=== PATIENT | male | born 1960 | race Caucasian/White ===

== ENCOUNTER 2019-04-28 14:12 | Emergency (ER) | payer MEDICARE, MEDICAID ==
[~2019-04-28] VITALS: Ht 193 cm; Wt 108.0 kg
[2019-04-28 15:25] LABS: BASOPHILS # (AUTO) 0.1 X10'3 (0-0.2); BASOPHILS % (AUTO) 1.1 % (0-1); EOSINOPHILS # (AUTO) 0.1 X10'3 (0-0.9); EOSINOPHILS % (AUTO) 1.2 % (0-6); HEMATOCRIT 40.1 % (42.0-52.0); HEMOGLOBIN 13.6 g/dl (14.0-17.9); LYMPHOCYTES % (AUTO) 16.8 % (21-51); MEAN CORPUSCULAR HEMOGLOBIN 32.1 PG (27.0-31.0); MEAN CORPUSCULAR VOLUME 94.3 FL (78-98); MONOCYTES # (AUTO) 1.7 X10'3 (0-0.9); MONOCYTES % (AUTO) 14.1 % (2-12); NEUTROPHILS # (AUTO) 8.1 X10'3 (1.8-7.7); NEUTROPHILS % (AUTO) 66.8 % (42-75); PLATELET COUNT 415 X10'3 (140-440); RED BLOOD COUNT 4.25 X10'6 (4.70-6.10); RED CELL DISTRIBUTION WIDTH 13.8 % (11.5-14.5); WHITE BLOOD COUNT 12.1 X10'3 (4.5-11.0)
[2019-04-28 15:37] LABS: ALANINE AMINOTRANSFERASE 65 U/L (12-78); ALBUMIN/GLOBULIN RATIO 0.6 (1.1-1.5); ALKALINE PHOSPHATASE 241 IU/L (46-116); ANION GAP 12 (8-16); ASPARTATE AMINO TRANSFERASE 65 U/L (10-37); BILIRUBIN,TOTAL 1.3 MG/DL (0.1-1.0); BLOOD UREA NITROGEN 20 MG/DL (7-18); BUN/CREATININE RATIO 15.5 (5.4-32.0); CALCIUM 9.5 MG/DL (8.5-10.1); CHLORIDE 103 MMOL/L (99-107); CREATININE 1.29 MG/DL (0.60-1.10); GLUCOSE 118 MG/DL (70-104); POTASSIUM 3.1 MMOL/L (3.5-5.1); SODIUM 140 MMOL/L (135-145); TOTAL CARBON DIOXIDE 24.8 MMOL/L (24-32); TOTAL PROTEIN 8.4 G/DL (6.4-8.2); eGFR 57 ML/MIN
--- NOTE | 2019-04-28 15:42 | NUR ---
relieving RN for break, pt is wanting to leave "No one has been to see me...I want some water...I need to go home to take care of my dog", Lorenzo GARCIA had been in to talk with pt approx 20 minutes earlier and pt was aware of NPO status at that time until labs and vascular study were done and results read. I explained the risks of leaving AMA and he would be leaving against medical advice, pt also aware [employer] technical lead senior developer was paged and on his way. Lorenzo GARCIA at bedside again to talk with pt, gave pt water, and auto transmission technician is at bedside
[2019-04-28] MEDS ORDERED: CefTRIAXone 1000mg IM Kit (w/lidocaine diluent) IM ONE (15:45)
[2019-04-28 16:04] VITALS: BP 148/78
[2019-04-28] MEDS ORDERED: SULF1TAB49 PO (16:04)
[2019-04-28] MEDS ORDERED: CEPH-572 PO (16:04)
[2019-04-28] MEDS ORDERED: POTA10TA10 PO (16:04)
[2019-04-28] MEDS ORDERED: ACET-3067 PO (16:27)
== END 2019-04-28 16:32 | disposition home or self-care (01) ==
LOC: ER 14:12
DX: L03.115 Cellulitis of right lower limb (principal); R60.0 Localized edema; R00.0 Tachycardia, unspecified; R74.8 Abnormal levels of other serum enzymes; M25.571 Pain in right ankle and joints of right foot; E87.6 Hypokalemia; Z98.890 Other specified postprocedural states; Z79.899 Other long term (current) drug therapy
CPT/HCPCS: 36415; 80053; 83605; 84145; 85025; 87040; 93005; 93971; 96372; 99284; J0696